=== PATIENT | female | born 1945 | race Two or more races ===

== ENCOUNTER 2020-05-16 00:49 | Emergency (ER) | payer BC ==
[~2020-05-16] VITALS: Ht 157.5 cm; Wt 63.5 kg
[2020-05-16 02:53] VITALS: BP 168/74
[2020-05-16] MEDS ORDERED: LIDOCAINE 1% HCL (LOCAL ANESTH.) INJ 20ML MDV IJ ONE (03:00)
== END 2020-05-16 04:19 | disposition home or self-care (01) ==
LOC: ER 00:49
DX: S01.511A Laceration without foreign body of lip, initial encounter (principal); E11.9 Type 2 diabetes mellitus without complications; I10 Essential (primary) hypertension; E78.5 Hyperlipidemia, unspecified; Z90.49 Acquired absence of other specified parts of digestive tract; W19.XXXA Unspecified fall, initial encounter; Y93.89 Activity, other specified; Y92.89 Other specified places as the place of occurrence of the external cause; Y99.8 Other external cause status
CPT/HCPCS: 12013